=== PATIENT | male | born 1950 | race Asian ===

== ENCOUNTER 2022-12-07 21:51 | Emergency (ER) | payer MEDICARE, MEDICAID ==
[~2022-12-07] VITALS: Ht 134.6 cm; Wt 73.0 kg
[2022-12-07 22:07] VITALS: BP 148/76; PULSE 87; RESP 16; TEMP 98.6; O2SAT 98
[2022-12-07] MEDS ORDERED: CLIN-194 MT (22:23)
[2022-12-07] MEDS ORDERED: AMOX1TAB16 MT (22:23)
[2022-12-07] MEDS ORDERED: AMOXICILLIN/POTASSIUM CLAVULANATE 875/125MG TAB PO ONE (22:30)
[2022-12-07] MEDS ORDERED: CLINDAMYCIN HCL 150MG CAPSULE PO SCH (22:30)
== END 2022-12-08 00:20 ==
LOC: ER 22:08
DX: M79.89 Other specified soft tissue disorders (principal); I12.0 Hypertensive chronic kidney disease with stage 5 chronic kidney disease or end stage renal disease; E11.22 Type 2 diabetes mellitus with diabetic chronic kidney disease; N18.6 End stage renal disease; Z99.2 Dependence on renal dialysis
CPT/HCPCS: 99283